=== PATIENT | female | born 1950 | race Caucasian/White ===

== ENCOUNTER 2017-10-24 11:40 | Emergency (ER) | END 2017-10-24 15:41 | disposition home or self-care (01) ==

== ENCOUNTER 2017-12-04 06:33 | Emergency (ER) | END 2017-12-04 08:35 | disposition home or self-care (01) ==

== ENCOUNTER 2018-04-01 03:02 | Emergency (ER) | END 2018-04-01 04:42 | disposition home or self-care (01) ==

== ENCOUNTER 2018-11-25 12:31 | Emergency (ER) | payer OTHER ==
[~2018-11-25] VITALS: Ht 157.5 cm; Wt 82.0 kg
[~2018-11-25 12:31] MED LIST: ASPI81TA52 PO; BEN25 PO; CLOT30CR24 TOP; IBUP800T48 PO; PHEN-538 PO; SULF1TAB31 PO
[2018-11-25 12:37] VITALS: Ht 157.5 cm; Wt 82.0 kg
[2018-11-25] MEDS ORDERED: KETOROLAC 30 MG INJ IM STA (13:35)
[2018-11-25] MEDS ORDERED: IBUP-1542 PO (15:00)
--- NOTE | 2018-11-25 16:43 | ERD ---
ER Documentation Chief Complaint Chief Complaint L knee pain after cortisone shot today HPI 68-year-old female presenting to the emergency department complaining of left knee pain intermittently for the past 8 months. She states her knee pain worsened significantly today after receiving a cortisone shot to the knee by her orthopedic physician. She reports pain which is 10/10 in severity and constant and worse with walking. She tried no medication for relief of symptoms. She is unable to weight-bear secondary to the pain. She denies any falls or fevers, chills, or other symptoms at this time. ROS All systems reviewed and are negative except as per history of present illness. Medications Home Meds Active Scripts Ibuprofen* (Motrin*) 600 Mg Tab, 600 MG PO Q6, #30 TAB Prov:SULEIMAN GAYTAN PA-C 11/25/18 Phenazopyridine Hcl* (Pyridium*) 200 Mg Tab, 200 MG PO TID PRN for URINARY PAIN, #6 TAB Prov:DARIUS,ABELARDO 04/01/18 Sulfamethoxazole/Trimethoprim* (Bactrim Ds* Tablet) 1 Each Tablet, 1 TAB PO DAILY for 7 Days, #14 TAB 0 Refills Prov:DARIUS,ABELARDO 04/01/18 Clotrimazole* (Clotrimazole* AF) 1% - 30 Gm Cream.gm., 1 APPLIC TOP BID for 7 Days, TUB Prov:PASILABAN,KLAR F 12/04/17 Diphenhydramine Hcl* (Benadryl*) 25 Mg Cap, 25 MG PO Q6 PRN for ITCHING/RASH, #30 TAB Prov:PASILARUTHY DAVIDSONAR F 12/04/17 Ibuprofen* (Motrin*) 800 Mg Tab, 800 MG PO Q6H PRN for PAIN AND OR ELEVATED TEMP, #30 TAB Prov:MOLLY WASHINGTON MD 10/24/17 Reported Medications Aspirin (Low Dose Aspirin) 81 Mg Tablet.dr, 81 MG PO DAILY, #30 TAB 10/24/17 Allergies Allergies: Coded Allergies: Penicillins (Verified Allergy, Intermediate, 10/24/17) PMhx/Soc Medical and Surgical Hx: pt denies Medical Hx, pt denies Surgical Hx History of Surgery: Yes (R-Oophorectomy 2005) Anesthesia Reaction: No Hx Neurological Disorder: No Hx Respiratory Disorders: No Hx Cardiac Disorders: No Hx Psychiatric Problems: No Hx Miscellaneous Medical Probl: No Hx Alcohol Use: No Hx Substance Use: No Hx Tobacco Use: No FmHx Family History: No diabetes Physical Exam Vitals Vital Signs Date Temp Pulse Resp B/P (MAP) Pulse Ox O2 O2 Flow FiO2 Time Delivery Rate 11/25/18 99.4 85 24 154/82 100 12:37 (106) Physical Exam Const: No acute distress Head: Atraumatic Eyes: Normal Conjunctiva ENT: Normal External Ears, Nose and Mouth. Neck: Full range of motion. No meningismus. Resp: Clear to auscultation bilaterally Cardio: Regular rate and rhythm, no murmurs Skin: No petechiae or rashes Back: No midline or flank tenderness Ext: L knee examination: Small joint effusion noted. Associated tenderness to palpation over the anterior portion. Limited range of motion secondary to pain. Patient unable to ambulate or weight-bear to the left lower extremity due to pain. There is no warmth or erythema noted. Neur: Awake and alert Psych: Normal Mood and Affect Results 24 hrs Current Medications Medications Dose Sig/Zee Start Time Status Last (Trade) Ordered Route PRN Stop Time Admin Dose Reason Admin Ketorolac 30 mg ONCE STAT 11/25/18 DC 11/25/18 Tromethamine IM 13:35 14:26 (Toradol) 11/25/18 13:37 Procedures/MDM [place] [address] Radiology Main Line: [phone] DIAGNOSTIC IMAGING REPORT Patient: SHANTELLE SAHNI : 1950 Age: 68 Sex: F MR #: [id number] [facility] #: [id number] DOS: 11/25/18 0000 Ordering MD: SULEIMAN GAYTAN PA-C Location: [facility] Room/Bed: PROCEDURE: Ultrasound of the left lower extremity venous system. CLINICAL INDICATION: Left lower extremity pain and swelling. TECHNIQUE: Molina scale with and without compression, color doppler, spectral doppler of the venous system of the left lower extremity was performed. Venous augmentation maneuvers were utilized. COMPARISON: No prior studies are available for comparison. FINDINGS: RIGHT: Common femoral vein: Patent and compressible. Femoral vein: Patent and compressible. Popliteal vein: Patent and compressible. Visualized calf veins: Patent and compressible. Soft tissues: Normal IMPRESSION: 1. No evidence of deep vein thrombosis. RPTAT: AAC Jermaine Barrett, Physician Date Time Electronically viewed and signed by Jermaine Barrett Physician on 11/25/2018 14:27 JH/ CC: SULEIMAN GAYTAN PA-C [id number] [place] [address] Radiology Main Line: [phone] DIAGNOSTIC IMAGING REPORT Patient: SHANTELLE SAHNI : 1950 Age: 68 Sex: F MR #: [id number] DOS: 11/25/18 0000 Ordering MD: SULEIMAN GAYTAN PA-C Location: [facility] Room/Bed: PROCEDURE: XR Knee. CLINICAL INDICATION: L knee pain after cortisone injection TECHNIQUE: AP, lateral and oblique view of the left knee were obtained. The images reviewed on a PACS workstation. COMPARISON: None. FINDINGS: No fracture or dislocation. No erosive changes. Mild arthrosis at the medial and patellofemoral compartments with joint space narrowing and small marginal osteophyte formation. Small joint effusion. IMPRESSION: Mild degenerative joint disease and small joint effusion. No evidence of acute osseous abnormality. RPTAT:AAJJ Juve Mustafa, Physician Date Time Electronically viewed and signed by Juve Mustafa Physician on 11/25/2018 14:17 RF/ CC: SULEIMAN GAYTAN PA-C [id number] [place] [address] Radiology Main Line: [phone] DIAGNOSTIC IMAGING REPORT Patient: SHANTELLE SAHNI : 1950 Age: 68 Sex: F MR #: [id number] DOS: 11/25/18 0000 Ordering MD: SULEIMAN GAYTAN PA-C Location: [facility] Room/Bed: PROCEDURE: Ultrasound of the left knee soft tissues was performed. CLINICAL INDICATION: Left knee pain status post joint injection. TECHNIQUE: Molina scale and color doppler ultrasound of the left knee soft tissues was performed. COMPARISON: None. FINDINGS: Solid masses: None Cystic lesions: 2.8 x 2.4 x 0.5 cm superficial fluid collection lateral to the patella. Lymph nodes: Normal Soft tissues: Normal IMPRESSION: 1. 2.8 x 2.4 x 0.5 cm superficial focal subcutaneous fluid collection lateral to the patella. RPTAT: AACC Physician Young Date Time Electronically viewed and signed by Jermaine Barrett Physician on 11/25/2018 14:29 JH/ CC: SULEIMAN GAYTAN PA-C [phone] Medical decision making: Patient's history and physical examination and work-up is most consistent with left knee pain secondary to joint effusion and degenerative changes. Patient was administered Toradol in the department with good response. She was significantly improved on reevaluation and was able to ambulate and weight-bear to the left lower extremity. Patient was advised to have close follow-up with orthopedic physician as an outpatient. She will be given prescriptions to treat her symptoms at home. Low suspicion for fracture, DVT, compartment syndrome, or other emergencies. The patient was in agreement with the diagnosis, plan, need for follow-up, return precautions. Patient's blood pressure was elevated (>120/80) but appears stable without evidence of hypertension emergency or urgency. The patient is to follow-up and pursue outpatient monitoring and therapy with their primary care physician within 1 week and return immediately if they have any new, worsening, or concerning symptoms. Departure Diagnosis: Primary Impression: Left knee pain Condition: Fair Patient Instructions: Knee Effusion [facility] Usted se lantigua hecho un examen mdico de control que le indica que no est en thomas condicin que requiera tratamiento urgente en el Departamento de Emergencia. Un estudio ms profundo y el tratamiento de fernandez condicin pueden esperar sin ningn riesgo hasta que usted sea atendida/o en el consultorio de fernandez mdico o thomas clnica. Es responsabilidad suya arreglar thomas magnolia para el seguimiento del stephanie. MANEJO DE CONDICIONES NO URGENTES EN EL FUTURO 1) Si usted tiene un mdico de atencin primaria: Usted debera llamar a fernandez mdico de atencin primaria antes de venir al departamento de emergencia. Despus de las horas de consultorio, fernandez doctor o fernandez asociado/a est disponible por telfono. El mdico o enfermero de leora en el servicio telefnico puede asesorarle por alexandro medio para atender el problema, o stephanie contrario se puede programar thomas magnolia. 2) Si usted no tiene un mdico de atencin primaria: Llame al mdico o clnica de referencia que aparece abajo penny las horas de consultorio para hacer thomas magnolia para que le vean. CLINICAS: [facility] [phone] [facility] [phone] [facility] [phone] [facility] [phone] [place] [phone] [facility] [phone] [facility] [facility] Urgent Care 7 a.m.- 11 p.m. Every Day of the Week NO APPOINTMENT OR AUTHORIZATION NEEDED [facility] Hours: Mon-Wed 9:00 AM - 5:00 PM Additional Instructions: Llame al doctor MAANA y rigoberto thomas MAGNOLIA PARA DENTRO DE 1-2 ARENAS.Dgale a la secretaria que nosotros le instruimos hacer esta magnolia.Avise o llame si fernandez condicin se empeora antes de la magnolia. Regresa aqui si peor o no mejor. SULEIMAN GAYTAN PA-C Nov 25, 2018 16:43
== END 2018-11-25 15:07 | disposition home or self-care (01) ==
LOC: FTE 12:31
DX: M25.462 Effusion, left knee (principal); Z79.82 Long term (current) use of aspirin
CPT/HCPCS: 73562; 76536; 93971; J1885; 96372